=== PATIENT | male | born 1960 | race Caucasian/White ===

== ENCOUNTER 2020-12-28 12:16 | Outpatient (CLI) | payer SELFPAY ==
[2020-12-29 01:46] LABS: SARS-CoV-2 PCR by NAA Not Detected (NotDetected)
== END 2020-12-28 12:17 | disposition home or self-care (01) ==
LOC: LABBT 12:16
PROVIDERS: ATTEND Internal Medicine Gastroenterology
DX: Z20.822 Contact with and (suspected) exposure to COVID-19 (principal)
CPT/HCPCS: 87635; U0003; U0005

== ENCOUNTER → 2021-01-02 | Day surgery (SDC) | payer OTHER | LOC: ENDO/OP 08:26 | PROVIDERS: ATTEND Internal Medicine Gastroenterology | DX: R13.10 Dysphagia, unspecified (principal); R63.4 Abnormal weight loss; R19.4 Change in bowel habit | CPT/HCPCS: 91010 ==